=== PATIENT | male | born 1965 | race African-American/Black ===

== ENCOUNTER → 2016-08-12 | Outpatient (CLI) | payer OTHER ==
[~2016-08-12] VITALS: Ht 170.2 cm; Wt 85.8 kg
[~2016-08-12] MED LIST: ALBU8.5H IH; AMLO-512 PO; AMOX500T2 PO; ASPI-1093 PO; ATOR10TA84 PO; BECL8.7A6 IH; CIPR-278 PO; CLOP75TA32 PO; CLOT30CR23 TP; CLOTRIMAZOLE 1% 15 GM CREAM TP ONE; COLL30OI TP; DIAZ5 PO; GABA-533 PO; HYDR-3971 PO; HYDR25TA PO; INSLAN SQ; INSU100V SQ; LIDOCAINE HCL 2% 5 ML JELLY TP ONE; LOSA50TA37 PO; MELO-273 PO; MULT-1259 PO; OMEP10 PO; OXYC1TAB12 PO; SENN8.6T20 PO
[2016-08-12 09:46] VITALS: BP 138/87
== END | disposition home or self-care (01) ==
LOC: HBOWC 07:53
PROVIDERS: ATTEND Emergency Medicine
DX: S61.401D Unspecified open wound of right hand, subsequent encounter (principal); E11.52 Type 2 diabetes mellitus with diabetic peripheral angiopathy with gangrene; E11.69 Type 2 diabetes mellitus with other specified complication; M86.641 Other chronic osteomyelitis, right hand; E11.621 Type 2 diabetes mellitus with foot ulcer; B35.1 Tinea unguium; L84 Corns and callosities; F41.9 Anxiety disorder, unspecified; Z89.022 Acquired absence of left finger(s); Z89.512 Acquired absence of left leg below knee; Z89.021 Acquired absence of right finger(s); X58.XXXD Exposure to other specified factors, subsequent encounter

== ENCOUNTER → 2016-08-18 | Outpatient (CLI) | payer OTHER ==
[~2016-08-18] MED LIST changes: -CIPR-278 PO; -CLOTRIMAZOLE 1% 15 GM CREAM TP ONE; -DIAZ5 PO; -SENN8.6T20 PO
[2016-08-18 08:12] VITALS: BP 125/61
== END | disposition home or self-care (01) ==
LOC: HBOWC 07:43
PROVIDERS: ATTEND Emergency Medicine
DX: E11.621 Type 2 diabetes mellitus with foot ulcer (principal); E11.622 Type 2 diabetes mellitus with other skin ulcer; L97.511 Non-pressure chronic ulcer of other part of right foot limited to breakdown of skin; L98.491 Non-pressure chronic ulcer of skin of other sites limited to breakdown of skin; E11.52 Type 2 diabetes mellitus with diabetic peripheral angiopathy with gangrene; M86.641 Other chronic osteomyelitis, right hand; B35.3 Tinea pedis; M21.41 Flat foot [pes planus] (acquired), right foot; L84 Corns and callosities; B35.1 Tinea unguium; F41.9 Anxiety disorder, unspecified; Z89.512 Acquired absence of left leg below knee; Z89.022 Acquired absence of left finger(s); Z89.021 Acquired absence of right finger(s)
CPT/HCPCS: 93922; 97597; Z7606; Z7608

== ENCOUNTER → 2016-08-19 | Outpatient (CLI) | payer OTHER ==
[~2016-08-19] MED LIST changes: +CIPR-278 PO; +DIAZ5 PO; -LIDOCAINE HCL 2% 5 ML JELLY TP ONE; +SENN8.6T20 PO
== END | disposition home or self-care (01) ==
LOC: HBOWC 07:59
PROVIDERS: ATTEND Emergency Medicine
DX: E11.622 Type 2 diabetes mellitus with other skin ulcer (principal); L98.491 Non-pressure chronic ulcer of skin of other sites limited to breakdown of skin; E11.52 Type 2 diabetes mellitus with diabetic peripheral angiopathy with gangrene; E11.69 Type 2 diabetes mellitus with other specified complication; M86.641 Other chronic osteomyelitis, right hand; L84 Corns and callosities; F41.9 Anxiety disorder, unspecified; B35.3 Tinea pedis; B35.1 Tinea unguium; Z89.022 Acquired absence of left finger(s); Z89.512 Acquired absence of left leg below knee; Z89.021 Acquired absence of right finger(s)
CPT/HCPCS: 93922; Z7606; Z7608

== ENCOUNTER → 2016-08-20 | Outpatient (CLI) | payer OTHER ==
[~2016-08-20] MED LIST changes: -CIPR-278 PO; -DIAZ5 PO; -SENN8.6T20 PO
== END | disposition home or self-care (01) ==
LOC: HBOWC 08:25
PROVIDERS: ATTEND Emergency Medicine
DX: M86.8X4 Other osteomyelitis, hand (principal); E11.52 Type 2 diabetes mellitus with diabetic peripheral angiopathy with gangrene; F41.9 Anxiety disorder, unspecified; M21.41 Flat foot [pes planus] (acquired), right foot; E11.51 Type 2 diabetes mellitus with diabetic peripheral angiopathy without gangrene; Z89.512 Acquired absence of left leg below knee
CPT/HCPCS: Z7606; Z7608

== ENCOUNTER → 2016-08-24 | Outpatient (CLI) | payer OTHER | END | disposition home or self-care (01) | LOC: HBOWC 08:12 | PROVIDERS: ATTEND Emergency Medicine Undersea and Hyperbaric Medicine | DX: M86.8X4 Other osteomyelitis, hand (principal); E11.52 Type 2 diabetes mellitus with diabetic peripheral angiopathy with gangrene; F41.9 Anxiety disorder, unspecified; Z89.022 Acquired absence of left finger(s); Z89.512 Acquired absence of left leg below knee; Z89.021 Acquired absence of right finger(s) | CPT/HCPCS: Z7606; Z7608 ==

== ENCOUNTER → 2016-08-25 | Outpatient (CLI) | payer OTHER ==
[~2016-08-25] MED LIST changes: +CIPR-278 PO; +DIAZ5 PO; +SENN8.6T20 PO
[2016-08-25 12:04] VITALS: BP 145/72
== END | disposition home or self-care (01) ==
LOC: HBOWC 07:50
PROVIDERS: ATTEND Emergency Medicine
DX: E11.621 Type 2 diabetes mellitus with foot ulcer (principal); E11.52 Type 2 diabetes mellitus with diabetic peripheral angiopathy with gangrene; L97.511 Non-pressure chronic ulcer of other part of right foot limited to breakdown of skin; F41.9 Anxiety disorder, unspecified; E11.69 Type 2 diabetes mellitus with other specified complication; M86.8X4 Other osteomyelitis, hand; L84 Corns and callosities; B35.1 Tinea unguium; Z89.022 Acquired absence of left finger(s); Z89.512 Acquired absence of left leg below knee; Z89.021 Acquired absence of right finger(s)
CPT/HCPCS: 97597; Z7606; Z7608

== ENCOUNTER → 2016-08-26 | Outpatient (CLI) | payer OTHER ==
[~2016-08-26] MED LIST changes: -CIPR-278 PO; -DIAZ5 PO; -SENN8.6T20 PO
== END | disposition home or self-care (01) ==
LOC: HBOWC 08:16
PROVIDERS: ATTEND Emergency Medicine
DX: E11.621 Type 2 diabetes mellitus with foot ulcer (principal); L97.521 Non-pressure chronic ulcer of other part of left foot limited to breakdown of skin; E11.52 Type 2 diabetes mellitus with diabetic peripheral angiopathy with gangrene; E11.69 Type 2 diabetes mellitus with other specified complication; M86.641 Other chronic osteomyelitis, right hand; F41.9 Anxiety disorder, unspecified; L84 Corns and callosities; B35.1 Tinea unguium; M21.41 Flat foot [pes planus] (acquired), right foot; B35.3 Tinea pedis; Z89.022 Acquired absence of left finger(s); Z89.512 Acquired absence of left leg below knee
CPT/HCPCS: Z7606; Z7608

== ENCOUNTER → 2016-08-27 | Outpatient (CLI) | payer OTHER | END | disposition home or self-care (01) | LOC: HBOWC 08:02 | PROVIDERS: ATTEND Emergency Medicine | DX: E11.69 Type 2 diabetes mellitus with other specified complication (principal); M86.641 Other chronic osteomyelitis, right hand; E11.52 Type 2 diabetes mellitus with diabetic peripheral angiopathy with gangrene; F41.9 Anxiety disorder, unspecified; Z89.022 Acquired absence of left finger(s); Z89.512 Acquired absence of left leg below knee; Z89.021 Acquired absence of right finger(s) | CPT/HCPCS: Z7606; Z7608 ==

== ENCOUNTER → 2016-08-31 | Outpatient (CLI) | payer OTHER ==
[~2016-08-31] MED LIST changes: +CIPR-278 PO
== END | disposition home or self-care (01) ==
LOC: HBOWC 08:00
PROVIDERS: ATTEND Emergency Medicine
DX: E11.69 Type 2 diabetes mellitus with other specified complication (principal); M86.641 Other chronic osteomyelitis, right hand; E11.52 Type 2 diabetes mellitus with diabetic peripheral angiopathy with gangrene; Z89.022 Acquired absence of left finger(s); Z89.512 Acquired absence of left leg below knee; L84 Corns and callosities; B35.1 Tinea unguium; F41.9 Anxiety disorder, unspecified; M21.41 Flat foot [pes planus] (acquired), right foot
CPT/HCPCS: Z7606; Z7608

== ENCOUNTER → 2016-09-01 | Outpatient (CLI) | payer OTHER ==
[~2016-09-01] MED LIST changes: -CIPR-278 PO
== END | disposition home or self-care (01) ==
LOC: HBOWC 07:57
PROVIDERS: ATTEND Emergency Medicine
DX: E11.621 Type 2 diabetes mellitus with foot ulcer (principal); E11.52 Type 2 diabetes mellitus with diabetic peripheral angiopathy with gangrene; L97.521 Non-pressure chronic ulcer of other part of left foot limited to breakdown of skin; F41.9 Anxiety disorder, unspecified; L84 Corns and callosities; E11.69 Type 2 diabetes mellitus with other specified complication; M86.641 Other chronic osteomyelitis, right hand; B35.3 Tinea pedis; B35.1 Tinea unguium; Z89.022 Acquired absence of left finger(s); Z89.512 Acquired absence of left leg below knee; Z89.021 Acquired absence of right finger(s)
CPT/HCPCS: Z7606; Z7608

== ENCOUNTER 2016-09-02 09:21 | Emergency (ER) | payer OTHER ==
[~2016-09-02] VITALS: Ht 170.2 cm; Wt 84.1 kg
[2016-09-02] MEDS ORDERED: DEXTROSE 10%-WATER 1,000 ML IV ONE (09:45)
[2016-09-02 09:47] LABS: GLUCOSE,POINT OF CARE 75 MG/DL (70-110)
[2016-09-02 09:58] LABS: BASOPHILS % (AUTO) 0.8 % (0.0-2.0); EOSINOPHILS % (AUTO) 5.6 % (1.0-6.0); HEMATOCRIT 35.5 % (41-53); HEMOGLOBIN 11.4 g/dL (13.5-17.5); LYMPHOCYTES # (AUTO) 1.9 K/uL (1.0-4.8); LYMPHOCYTES % (AUTO) 25.6 % (22.0-44.0); MEAN CORPUSCULAR HEMOGLOBIN 27.7 pg (26.0-34.0); MEAN CORPUSCULAR VOLUME 86 fL (80-100); MONOCYTES # (AUTO) 0.6 K/uL (0.1-1.0); MONOCYTES % (AUTO) 7.7 % (2.0-9.0); NEUTROPHILS # (AUTO) 4.5 K/uL (1.8-7.7); NEUTROPHILS % (AUTO) 60.3 % (40.0-70.0); PLATELET COUNT (AUTO) 337 K/uL (150-450); RED BLOOD CELL COUNT(AUTO) 4.11 MIL/uL (4.50-5.90); RED CELL DISTRIBUTION WIDTH 14.5 % (11.5-14.5); WHITE BLOOD COUNT (AUTO) 7.4 K/uL (4.5-11.0)
[2016-09-02 10:09] LABS: CREATININE 1.63 mg/dL (0.60-1.30); POTASSIUM 3.7 mmol/L (3.5-5.1)
[2016-09-02 10:15] LABS: ALBUMIN 3.8 g/dL (3.4-5.0); BILIRUBIN,TOTAL 0.2 mg/dL (0.1-1.0)
[2016-09-02] MEDS ORDERED: OxyCODONE HCL/ACETAMINOPHEN 10-325 MG TABLET PO ONE (10:15)
[2016-09-02 11:32] LABS: GLUCOSE,POINT OF CARE 171 MG/DL (70-110)
[2016-09-02 12:55] VITALS: BP 128/78
[2016-09-24] MEDS ORDERED: CIPR-278 PO (09:16)
== END 2016-09-02 14:13 | disposition home or self-care (01) ==
LOC: EMS 09:22
DX: T38.3X1A Poisoning by insulin and oral hypoglycemic [antidiabetic] drugs, accidental (unintentional), initial encounter (principal); E11.649 Type 2 diabetes mellitus with hypoglycemia without coma; F17.210 Nicotine dependence, cigarettes, uncomplicated; F12.90 Cannabis use, unspecified, uncomplicated; Z79.82 Long term (current) use of aspirin; Z79.4 Long term (current) use of insulin; Z88.1 Allergy status to other antibiotic agents; Z88.5 Allergy status to narcotic agent; Z88.2 Allergy status to sulfonamides
CPT/HCPCS: 36415; 80053; 82962; 85025; 96360; 96361; 99284; X7700

== ENCOUNTER → 2016-09-02 | Outpatient (CLI) | payer OTHER ==
[2016-09-02 09:02] LABS: GLUCOSE,POINT OF CARE 87 MG/DL (70-110)
[2016-09-02 09:47] VITALS: BP 109/52
== END | disposition home or self-care (01) ==
LOC: HBOWC 08:16
PROVIDERS: ATTEND Emergency Medicine
DX: E11.621 Type 2 diabetes mellitus with foot ulcer (principal); E11.52 Type 2 diabetes mellitus with diabetic peripheral angiopathy with gangrene; E11.69 Type 2 diabetes mellitus with other specified complication; M86.641 Other chronic osteomyelitis, right hand; L97.511 Non-pressure chronic ulcer of other part of right foot limited to breakdown of skin; B35.3 Tinea pedis; L84 Corns and callosities; B35.1 Tinea unguium; F41.9 Anxiety disorder, unspecified; M21.41 Flat foot [pes planus] (acquired), right foot; Z89.022 Acquired absence of left finger(s); Z89.512 Acquired absence of left leg below knee; Z89.021 Acquired absence of right finger(s)
CPT/HCPCS: 82962; G0463

== ENCOUNTER → 2016-09-03 | Outpatient (CLI) | payer OTHER ==
[~2016-09-03] MED LIST changes: +CIPR-278 PO
[2016-09-03 08:27] LABS: GLUCOSE,POINT OF CARE 285 MG/DL (70-110)
== END | disposition home or self-care (01) ==
LOC: HBOWC 08:00
PROVIDERS: ATTEND Emergency Medicine
DX: E11.52 Type 2 diabetes mellitus with diabetic peripheral angiopathy with gangrene (principal); E11.69 Type 2 diabetes mellitus with other specified complication; M86.641 Other chronic osteomyelitis, right hand; F41.9 Anxiety disorder, unspecified; Z89.512 Acquired absence of left leg below knee; Z89.022 Acquired absence of left finger(s); Z89.021 Acquired absence of right finger(s); M21.41 Flat foot [pes planus] (acquired), right foot
CPT/HCPCS: 82962; Z7606; Z7608

== ENCOUNTER → 2016-09-07 | Outpatient (CLI) | payer OTHER ==
[~2016-09-07] MED LIST changes: -CIPR-278 PO
== END | disposition home or self-care (01) ==
LOC: HBOWC 08:02
PROVIDERS: ATTEND Emergency Medicine
DX: E11.621 Type 2 diabetes mellitus with foot ulcer (principal); E11.52 Type 2 diabetes mellitus with diabetic peripheral angiopathy with gangrene; L97.511 Non-pressure chronic ulcer of other part of right foot limited to breakdown of skin; F41.9 Anxiety disorder, unspecified; E11.69 Type 2 diabetes mellitus with other specified complication; M86.8X4 Other osteomyelitis, hand; L84 Corns and callosities; B35.1 Tinea unguium; Z89.022 Acquired absence of left finger(s); Z89.512 Acquired absence of left leg below knee; Z89.021 Acquired absence of right finger(s)
CPT/HCPCS: Z7606; Z7608

== ENCOUNTER → 2016-09-08 | Outpatient (CLI) | payer OTHER | END | disposition home or self-care (01) | LOC: HBOWC 08:23 | PROVIDERS: ATTEND Emergency Medicine | DX: E11.622 Type 2 diabetes mellitus with other skin ulcer (principal); L98.491 Non-pressure chronic ulcer of skin of other sites limited to breakdown of skin; E11.649 Type 2 diabetes mellitus with hypoglycemia without coma; E11.69 Type 2 diabetes mellitus with other specified complication; M86.8X4 Other osteomyelitis, hand; E11.52 Type 2 diabetes mellitus with diabetic peripheral angiopathy with gangrene; F12.90 Cannabis use, unspecified, uncomplicated; L84 Corns and callosities; Z79.4 Long term (current) use of insulin; B35.3 Tinea pedis; B35.1 Tinea unguium; Z89.512 Acquired absence of left leg below knee; Z89.022 Acquired absence of left finger(s); Z89.021 Acquired absence of right finger(s) | CPT/HCPCS: Z7606; Z7608 ==

== ENCOUNTER → 2016-09-09 | Outpatient (CLI) | payer OTHER | END | disposition home or self-care (01) | LOC: HBOWC 08:25 | PROVIDERS: ATTEND Emergency Medicine | DX: M86.8X4 Other osteomyelitis, hand (principal); E11.52 Type 2 diabetes mellitus with diabetic peripheral angiopathy with gangrene; E11.649 Type 2 diabetes mellitus with hypoglycemia without coma; F41.9 Anxiety disorder, unspecified; L84 Corns and callosities; B35.3 Tinea pedis; B35.1 Tinea unguium; F17.210 Nicotine dependence, cigarettes, uncomplicated; Z79.4 Long term (current) use of insulin; Z89.022 Acquired absence of left finger(s); Z89.512 Acquired absence of left leg below knee; Z89.021 Acquired absence of right finger(s) | CPT/HCPCS: Z7606; Z7608 ==

== ENCOUNTER → 2016-09-10 | Outpatient (CLI) | payer OTHER ==
[2016-09-10 12:08] VITALS: BP 152/90
== END | disposition home or self-care (01) ==
LOC: HBOWC 08:21
PROVIDERS: ATTEND Emergency Medicine
DX: E11.622 Type 2 diabetes mellitus with other skin ulcer (principal); L98.494 Non-pressure chronic ulcer of skin of other sites with necrosis of bone; E11.52 Type 2 diabetes mellitus with diabetic peripheral angiopathy with gangrene; E11.621 Type 2 diabetes mellitus with foot ulcer; L97.511 Non-pressure chronic ulcer of other part of right foot limited to breakdown of skin; E11.69 Type 2 diabetes mellitus with other specified complication; M86.641 Other chronic osteomyelitis, right hand; F12.90 Cannabis use, unspecified, uncomplicated; L84 Corns and callosities; Z79.4 Long term (current) use of insulin; B35.1 Tinea unguium; B35.3 Tinea pedis; E11.649 Type 2 diabetes mellitus with hypoglycemia without coma; F41.9 Anxiety disorder, unspecified; M21.41 Flat foot [pes planus] (acquired), right foot; F17.210 Nicotine dependence, cigarettes, uncomplicated; Z89.022 Acquired absence of left finger(s); Z89.021 Acquired absence of right finger(s); Z89.512 Acquired absence of left leg below knee
CPT/HCPCS: 97597; Z7606; Z7608

== ENCOUNTER → 2016-09-13 | Outpatient (CLI) | payer OTHER ==
[2016-09-13 08:37] LABS: GLUCOSE,POINT OF CARE 110 MG/DL (70-110)
[2016-09-13 11:52] LABS: GLUCOSE,POINT OF CARE 181 MG/DL (70-110)
== END | disposition home or self-care (01) ==
LOC: HBOWC 07:54
PROVIDERS: ATTEND Emergency Medicine Undersea and Hyperbaric Medicine
DX: E11.69 Type 2 diabetes mellitus with other specified complication (principal); M86.641 Other chronic osteomyelitis, right hand; F41.9 Anxiety disorder, unspecified; E11.52 Type 2 diabetes mellitus with diabetic peripheral angiopathy with gangrene; F17.210 Nicotine dependence, cigarettes, uncomplicated; F12.90 Cannabis use, unspecified, uncomplicated; Z79.4 Long term (current) use of insulin; Z89.022 Acquired absence of left finger(s); Z89.021 Acquired absence of right finger(s); Z89.512 Acquired absence of left leg below knee
CPT/HCPCS: 82962; Z7606; Z7608

== ENCOUNTER → 2016-09-14 | Outpatient (CLI) | payer OTHER | END | disposition home or self-care (01) | LOC: HBOWC 08:05 | PROVIDERS: ATTEND Emergency Medicine Undersea and Hyperbaric Medicine | DX: E11.69 Type 2 diabetes mellitus with other specified complication (principal); M86.8X4 Other osteomyelitis, hand; E11.52 Type 2 diabetes mellitus with diabetic peripheral angiopathy with gangrene; F41.9 Anxiety disorder, unspecified; L84 Corns and callosities; B35.3 Tinea pedis; B35.1 Tinea unguium; F17.210 Nicotine dependence, cigarettes, uncomplicated; Z79.4 Long term (current) use of insulin; Z89.022 Acquired absence of left finger(s); Z89.512 Acquired absence of left leg below knee; Z89.021 Acquired absence of right finger(s) | CPT/HCPCS: Z7606; Z7608 ==

== ENCOUNTER → 2016-09-15 | Outpatient (CLI) | payer OTHER ==
[2016-09-15 08:31] LABS: GLUCOSE,POINT OF CARE 245 MG/DL (70-110)
[2016-09-15 12:14] VITALS: BP 148/90
== END | disposition home or self-care (01) ==
LOC: HBOWC 08:04
PROVIDERS: ATTEND Emergency Medicine Undersea and Hyperbaric Medicine
DX: L97.511 Non-pressure chronic ulcer of other part of right foot limited to breakdown of skin (principal); E11.621 Type 2 diabetes mellitus with foot ulcer; S61.402D Unspecified open wound of left hand, subsequent encounter; E11.52 Type 2 diabetes mellitus with diabetic peripheral angiopathy with gangrene; E11.69 Type 2 diabetes mellitus with other specified complication; M86.8X4 Other osteomyelitis, hand; F41.9 Anxiety disorder, unspecified; L84 Corns and callosities; B35.1 Tinea unguium; B35.3 Tinea pedis; Z79.4 Long term (current) use of insulin; Z89.021 Acquired absence of right finger(s); Z89.022 Acquired absence of left finger(s); Z89.512 Acquired absence of left leg below knee; X58.XXXD Exposure to other specified factors, subsequent encounter
CPT/HCPCS: 82962; 97597; Z7606; Z7608

== ENCOUNTER → 2016-09-16 | Outpatient (CLI) | payer OTHER ==
[2016-09-16 11:10] LABS: GLUCOSE COMMENT 1 Received Meds; GLUCOSE,POINT OF CARE 283 MG/DL (70-110)
== END | disposition home or self-care (01) ==
LOC: HBOWC 08:07
PROVIDERS: ATTEND Emergency Medicine Undersea and Hyperbaric Medicine
DX: E11.69 Type 2 diabetes mellitus with other specified complication (principal); M86.8X4 Other osteomyelitis, hand; F41.9 Anxiety disorder, unspecified; F12.90 Cannabis use, unspecified, uncomplicated; F17.210 Nicotine dependence, cigarettes, uncomplicated; Z89.512 Acquired absence of left leg below knee; Z89.021 Acquired absence of right finger(s); Z89.022 Acquired absence of left finger(s); Z79.4 Long term (current) use of insulin
CPT/HCPCS: 82962; Z7606; Z7608

== ENCOUNTER → 2016-09-20 | Outpatient (CLI) | payer OTHER ==
[~2016-09-20] MED LIST changes: +CIPR-278 PO
[2016-09-20 08:10] VITALS: BP 150/69
== END | disposition home or self-care (01) ==
LOC: HBOWC 08:05
PROVIDERS: ATTEND Emergency Medicine
DX: E11.621 Type 2 diabetes mellitus with foot ulcer (principal); L97.511 Non-pressure chronic ulcer of other part of right foot limited to breakdown of skin; E11.52 Type 2 diabetes mellitus with diabetic peripheral angiopathy with gangrene; E11.69 Type 2 diabetes mellitus with other specified complication; M86.641 Other chronic osteomyelitis, right hand; S61.402D Unspecified open wound of left hand, subsequent encounter; F41.9 Anxiety disorder, unspecified; F12.90 Cannabis use, unspecified, uncomplicated; B35.1 Tinea unguium; L84 Corns and callosities; F17.210 Nicotine dependence, cigarettes, uncomplicated; Z89.022 Acquired absence of left finger(s); Z89.512 Acquired absence of left leg below knee; Z89.021 Acquired absence of right finger(s); Z79.82 Long term (current) use of aspirin; Z79.4 Long term (current) use of insulin; X58.XXXD Exposure to other specified factors, subsequent encounter
CPT/HCPCS: 97597

== ENCOUNTER → 2016-09-21 | Outpatient (CLI) | payer OTHER | END | disposition home or self-care (01) | LOC: HBOWC 08:26 | PROVIDERS: ATTEND Emergency Medicine | DX: E11.69 Type 2 diabetes mellitus with other specified complication (principal); M86.641 Other chronic osteomyelitis, right hand; F12.90 Cannabis use, unspecified, uncomplicated; E11.52 Type 2 diabetes mellitus with diabetic peripheral angiopathy with gangrene; F41.9 Anxiety disorder, unspecified; Z88.1 Allergy status to other antibiotic agents; Z88.5 Allergy status to narcotic agent; Z88.2 Allergy status to sulfonamides; F17.210 Nicotine dependence, cigarettes, uncomplicated; Z79.4 Long term (current) use of insulin; Z89.022 Acquired absence of left finger(s); Z89.421 Acquired absence of other right toe(s); Z89.512 Acquired absence of left leg below knee; Z89.021 Acquired absence of right finger(s) | CPT/HCPCS: Z7606; Z7608 ==

== ENCOUNTER → 2016-09-22 | Outpatient (CLI) | payer OTHER ==
[2016-09-22 11:41] VITALS: BP 104/65
== END | disposition home or self-care (01) ==
LOC: HBOWC 08:10
PROVIDERS: ATTEND Emergency Medicine
DX: E11.622 Type 2 diabetes mellitus with other skin ulcer (principal); E11.52 Type 2 diabetes mellitus with diabetic peripheral angiopathy with gangrene; L98.491 Non-pressure chronic ulcer of skin of other sites limited to breakdown of skin; E11.621 Type 2 diabetes mellitus with foot ulcer; L97.511 Non-pressure chronic ulcer of other part of right foot limited to breakdown of skin; E11.69 Type 2 diabetes mellitus with other specified complication; E11.65 Type 2 diabetes mellitus with hyperglycemia; M86.641 Other chronic osteomyelitis, right hand; L84 Corns and callosities; B35.3 Tinea pedis; F41.9 Anxiety disorder, unspecified; Z79.4 Long term (current) use of insulin; Z89.022 Acquired absence of left finger(s); Z89.512 Acquired absence of left leg below knee; Z89.021 Acquired absence of right finger(s)
CPT/HCPCS: 97597; Z7606; Z7608

== ENCOUNTER → 2016-09-23 | Outpatient (CLI) | payer OTHER | END | disposition home or self-care (01) | LOC: HBOWC 08:07 | PROVIDERS: ATTEND Emergency Medicine | DX: E11.69 Type 2 diabetes mellitus with other specified complication (principal); M86.641 Other chronic osteomyelitis, right hand; E11.52 Type 2 diabetes mellitus with diabetic peripheral angiopathy with gangrene; F41.9 Anxiety disorder, unspecified; F12.90 Cannabis use, unspecified, uncomplicated; F17.210 Nicotine dependence, cigarettes, uncomplicated; Z89.022 Acquired absence of left finger(s); Z89.021 Acquired absence of right finger(s); Z89.512 Acquired absence of left leg below knee; Z89.421 Acquired absence of other right toe(s); Z88.5 Allergy status to narcotic agent; Z88.1 Allergy status to other antibiotic agents; Z88.2 Allergy status to sulfonamides; Z79.4 Long term (current) use of insulin | CPT/HCPCS: Z7606; Z7608 ==

== ENCOUNTER → 2016-09-24 | Outpatient (CLI) | payer OTHER ==
[2016-09-24 11:32] LABS: GLUCOSE COMMENT 1 Juice/Food/D50 Given; GLUCOSE,POINT OF CARE 115 MG/DL (70-110)
== END | disposition home or self-care (01) ==
LOC: HBOWC 08:19
PROVIDERS: ATTEND Emergency Medicine
DX: E11.622 Type 2 diabetes mellitus with other skin ulcer (principal); E11.52 Type 2 diabetes mellitus with diabetic peripheral angiopathy with gangrene; L98.491 Non-pressure chronic ulcer of skin of other sites limited to breakdown of skin; E11.65 Type 2 diabetes mellitus with hyperglycemia; E11.69 Type 2 diabetes mellitus with other specified complication; M86.641 Other chronic osteomyelitis, right hand; L84 Corns and callosities; B35.3 Tinea pedis; B35.1 Tinea unguium; F17.210 Nicotine dependence, cigarettes, uncomplicated; Z79.4 Long term (current) use of insulin; Z89.022 Acquired absence of left finger(s); Z89.021 Acquired absence of right finger(s); Z89.512 Acquired absence of left leg below knee
CPT/HCPCS: 82962; Z7606; Z7608

== ENCOUNTER → 2016-09-27 | Outpatient (CLI) | payer OTHER ==
[~2016-09-27] MED LIST changes: +BP MED; +DIAZ5 PO; +INSU100C4 SQ; +INSU100C6 SQ; +SENN8.6T20 PO
== END | disposition home or self-care (01) ==
LOC: HBOWC 08:28
PROVIDERS: ATTEND Emergency Medicine
DX: M86.8X4 Other osteomyelitis, hand (principal); E11.52 Type 2 diabetes mellitus with diabetic peripheral angiopathy with gangrene; E11.65 Type 2 diabetes mellitus with hyperglycemia; L84 Corns and callosities; B35.1 Tinea unguium; F41.9 Anxiety disorder, unspecified; F17.210 Nicotine dependence, cigarettes, uncomplicated; Z89.022 Acquired absence of left finger(s); Z89.421 Acquired absence of other right toe(s); Z89.512 Acquired absence of left leg below knee; Z79.4 Long term (current) use of insulin; Z89.021 Acquired absence of right finger(s)
CPT/HCPCS: Z7606; Z7608

== ENCOUNTER → 2016-09-29 | Outpatient (CLI) | payer OTHER ==
[~2016-09-29] MED LIST changes: -AMOX500T2 PO; -BP MED; -DIAZ5 PO; -INSU100C4 SQ; -INSU100C6 SQ; -SENN8.6T20 PO
[2016-09-29 12:26] VITALS: BP 155/82
== END | disposition home or self-care (01) ==
LOC: HBOWC 08:49
PROVIDERS: ATTEND Emergency Medicine
DX: T87.89 Other complications of amputation stump (principal); E11.621 Type 2 diabetes mellitus with foot ulcer; L97.511 Non-pressure chronic ulcer of other part of right foot limited to breakdown of skin; E11.52 Type 2 diabetes mellitus with diabetic peripheral angiopathy with gangrene; L84 Corns and callosities; E11.69 Type 2 diabetes mellitus with other specified complication; M86.641 Other chronic osteomyelitis, right hand; F41.9 Anxiety disorder, unspecified; F12.90 Cannabis use, unspecified, uncomplicated; B35.1 Tinea unguium; Z88.1 Allergy status to other antibiotic agents; Z88.5 Allergy status to narcotic agent; Z88.2 Allergy status to sulfonamides; Z89.512 Acquired absence of left leg below knee; Z89.421 Acquired absence of other right toe(s); Z89.022 Acquired absence of left finger(s); Z79.4 Long term (current) use of insulin; F17.210 Nicotine dependence, cigarettes, uncomplicated; Y83.5 Amputation of limb(s) as the cause of abnormal reaction of the patient, or of later complication, without mention of misadventure at the time of the procedure
CPT/HCPCS: 97597; Z7606; Z7608

== ENCOUNTER → 2016-10-01 | Outpatient (CLI) | payer OTHER | END | disposition home or self-care (01) | LOC: HBOWC 08:28 | PROVIDERS: ATTEND Emergency Medicine | DX: E11.69 Type 2 diabetes mellitus with other specified complication (principal); M86.8X4 Other osteomyelitis, hand; E11.52 Type 2 diabetes mellitus with diabetic peripheral angiopathy with gangrene; E11.65 Type 2 diabetes mellitus with hyperglycemia; B35.1 Tinea unguium; L84 Corns and callosities; F41.9 Anxiety disorder, unspecified; F17.210 Nicotine dependence, cigarettes, uncomplicated; Z89.022 Acquired absence of left finger(s); Z89.512 Acquired absence of left leg below knee; Z89.421 Acquired absence of other right toe(s); Z79.4 Long term (current) use of insulin | CPT/HCPCS: Z7606; Z7608 ==

== ENCOUNTER → 2016-10-04 | Outpatient (CLI) | payer OTHER | END | disposition home or self-care (01) | LOC: HBOWC 08:09 | PROVIDERS: ATTEND Emergency Medicine | DX: E11.622 Type 2 diabetes mellitus with other skin ulcer (principal); L98.491 Non-pressure chronic ulcer of skin of other sites limited to breakdown of skin; E11.69 Type 2 diabetes mellitus with other specified complication; M86.641 Other chronic osteomyelitis, right hand; E11.52 Type 2 diabetes mellitus with diabetic peripheral angiopathy with gangrene; B35.1 Tinea unguium; L84 Corns and callosities; F17.210 Nicotine dependence, cigarettes, uncomplicated; E11.65 Type 2 diabetes mellitus with hyperglycemia; B35.3 Tinea pedis; M21.41 Flat foot [pes planus] (acquired), right foot; F41.9 Anxiety disorder, unspecified; E11.649 Type 2 diabetes mellitus with hypoglycemia without coma; Z79.4 Long term (current) use of insulin; Z89.021 Acquired absence of right finger(s); Z89.022 Acquired absence of left finger(s); Z89.512 Acquired absence of left leg below knee; Z89.421 Acquired absence of other right toe(s) | CPT/HCPCS: Z7606; Z7608 ==

== ENCOUNTER 2017-05-30 04:50 | Emergency (ER) | payer OTHER ==
[~2017-05-30] VITALS: Ht 170.2 cm; Wt 84.1 kg
[~2017-05-30 04:50] MED LIST changes: -ALBU8.5H IH; +ALBU8.5H8 IH; -ASPI-1093 PO; +ASPI-1182 PO; -HYDR-3971 PO; +HYDR-4069 PO; +MELO-107 PO; -MELO-273 PO
[2017-05-30 05:43] LABS: GLUCOSE,POINT OF CARE 44 MG/DL (70-110)
[2017-05-30 05:43] LABS: GLUCOSE,POINT OF CARE 81 MG/DL (70-110)
[2017-05-30 08:06] LABS: BASOPHILS % (AUTO) 0.3 % (0.0-2.0); EOSINOPHILS % (AUTO) 0.2 % (1.0-6.0); HEMATOCRIT 31.7 % (41-53); HEMOGLOBIN 10.2 g/dL (13.5-17.5); LYMPHOCYTES # (AUTO) 3.1 K/uL (1.0-4.8); MEAN CORPUSCULAR HEMOGLOBIN 27.6 pg (26.0-34.0); MEAN CORPUSCULAR HGB CONC 32.2 G/dL (31.0-37.0); MEAN CORPUSCULAR VOLUME 86 fL (80-100); MONOCYTES # (AUTO) 1.2 K/uL (0.1-1.0); MONOCYTES % (AUTO) 7.3 % (2.0-9.0); NEUTROPHILS # (AUTO) 11.8 K/uL (1.8-7.7); NEUTROPHILS % (AUTO) 73.2 % (40.0-70.0); PLATELET COUNT (AUTO) 386 K/uL (150-450); RED BLOOD CELL COUNT(AUTO) 3.71 MIL/uL (4.50-5.90)
[2017-05-30 08:14] LABS: CALCIUM, TOTAL 8.6 mg/dL (8.8-10.5); CREATININE 1.52 mg/dL (0.60-1.30); POTASSIUM 3.9 mmol/L (3.5-5.1)
[2017-05-30 08:16] LABS: PROTHROMBIN TIME 10.8 SEC (9.4-11.6)
[2017-05-30 08:20] LABS: ALBUMIN 3.6 g/dL (3.4-5.0); BILIRUBIN,TOTAL 0.4 mg/dL (0.1-1.0)
[2017-05-30] MEDS ORDERED: DEXTROSE 5%-0.45% SODIUM CHL 1,000 ML IV ONE (08:45)
[2017-05-30 10:03] LABS: GLUCOSE,POINT OF CARE 108 MG/DL (70-110)
[2017-05-30 12:24] LABS: APPEARANCE,URINE CLEAR (CLEAR); BILIRUBIN,URINE NEGATIVE (NEGATIVE); GLUCOSE, URINE (UA) NEGATIVE (NEGATIVE); KETONES,URINE NEGATIVE (NEGATIVE); LEUKOCYTE ESTERASE ,URINE NEGATIVE (NEGATIVE); NITRATE,URINE NEGATIVE (NEGATIVE); OCCULT BLOOD,URINE NEGATIVE (NEGATIVE); PROTEIN,URINE NEGATIVE (NEGATIVE); UROBILINOGEN,URINE 0.2 mg/dL (<=1.0)
[2017-05-30 12:33] LABS: AMPHET/METH SCREEN,URINE POSITIVE (NEGATIVE); BARBITURATE SCREEN, URINE NEGATIVE (NEGATIVE); BENZODIAZEPINES SCREEN,URINE NEGATIVE (NEGATIVE); CANNABINOID SCREEN,URINE NEGATIVE (NEGATIVE); COCAINE SCREEN,URINE POSITIVE (NEGATIVE); METHADONE SCREEN, URINE NEGATIVE (NEGATIVE); OPIATE SCREEN,URINE NEGATIVE (NEGATIVE)
[2017-05-30 12:34] LABS: PHENCYCLIDINE SCREEN,URINE NEGATIVE (NEGATIVE)
[2017-05-30 13:00] VITALS: BP 132/81
== END 2017-05-30 13:50 | disposition home or self-care (01) ==
LOC: EMS 04:51
DX: K85.90 Acute pancreatitis without necrosis or infection, unspecified (principal); E11.649 Type 2 diabetes mellitus with hypoglycemia without coma; E11.22 Type 2 diabetes mellitus with diabetic chronic kidney disease; N18.9 Chronic kidney disease, unspecified; F17.210 Nicotine dependence, cigarettes, uncomplicated; F14.10 Cocaine abuse, uncomplicated; Z88.6 Allergy status to analgesic agent; Z88.1 Allergy status to other antibiotic agents; Z79.4 Long term (current) use of insulin; Z79.899 Other long term (current) drug therapy; Z79.82 Long term (current) use of aspirin
CPT/HCPCS: 36415; 71045; 74176; 80053; 80307; 81003; 82962; 83690; 84484; 85025; 85610; 85730; 93005; 96360; 96361; 99285; X7700

== ENCOUNTER 2022-06-02 12:29 | Emergency (ER) | payer OTHER ==
[~2022-06-02] VITALS: Ht 160 cm; Wt 75.0 kg
[~2022-06-02 12:29] MED LIST changes: +AMLO-258 PO; -AMLO-512 PO; -ASPI-1182 PO; +ASPI-1444 PO; +ATOR10TA PO; -ATOR10TA84 PO; +GABA-1201 PO; -GABA-533 PO; -HYDR25TA PO; +HYDR25TA2 PO; +LOSA-382 PO; -LOSA50TA37 PO; -MELO-107 PO; +MELO-381 PO
[2022-06-02] MEDS ORDERED: SODIUM CHLORIDE 0.9% 500 ML IV ONE (13:00)
[2022-06-02 13:17] LABS: BASOPHILS % (AUTO) 0.6 % (0.0-2.0); EOSINOPHILS % (AUTO) 0.6 % (1.0-6.0); HEMATOCRIT 37.6 % (41-53); HEMOGLOBIN 12.4 g/dL (13.5-17.5); LYMPHOCYTES # (AUTO) 1.9 K/uL (1.0-4.8); LYMPHOCYTES % (AUTO) 22.3 % (22.0-44.0); MEAN CORPUSCULAR HEMOGLOBIN 29.3 pg (26.0-34.0); MEAN CORPUSCULAR VOLUME 89 fL (80-100); MONOCYTES # (AUTO) 0.5 K/uL (0.1-1.0); MONOCYTES % (AUTO) 5.8 % (2.0-9.0); NEUTROPHILS % (AUTO) 70.7 % (40.0-70.0); PLATELET COUNT (AUTO) 392 K/uL (150-450); RED BLOOD CELL COUNT(AUTO) 4.23 MIL/uL (4.50-5.90); RED CELL DISTRIBUTION WIDTH 14.6 % (11.5-14.5)
[2022-06-02 13:26] LABS: ANION GAP 8 mmol/L (8-16); CARBON DIOXIDE 29 mmol/L (22-29); CHLORIDE 96 mmol/L (98-107); CREATININE 1.36 mg/dL (0.60-1.30); GLOMERULAR FILTR. RATE CALC > 60 mL/min (>60); GLUCOSE,RANDOM 303 mg/dL (70-110); SODIUM SERUM 133 mmol/L (136-145); UREA NITROGEN, BLOOD 21 mg/dL (7-18)
[2022-06-02 13:27] LABS: CALCIUM, TOTAL 9.4 mg/dL (8.8-10.5)
[2022-06-02 13:32] LABS: PROTHROMBIN TIME 11.1 SEC (9.4-11.6)
[2022-06-02 13:41] LABS: ALANINE AMINOTRANSFERASE 30 U/L (12-78); ALKALINE PHOSPHATASE 128 U/L (46-116); ASPARTATE AMINOTRANSFERASE 23 U/L (15-37); BILIRUBIN,TOTAL 0.3 mg/dL (0.1-1.0); TOTAL PROTEIN, SERUM 8.4 g/dL (6.4-8.2)
[2022-06-02 13:41] LABS: COVID AG,FIA SOURCE NASAL SWAB
[2022-06-02 13:58] LABS: B-TYPE NATRIURETIC PEPTIDE 1110 pg/mL (0-100)
[2022-06-02 14:38] LABS: INFLUENZA TYPE A NEGATIVE FOR TYPE A (NEGATIVE); INFLUENZA TYPE B NEGATIVE FOR TYPE B (NEGATIVE)
[2022-06-02] MEDS ORDERED: ACETAMINOPHEN 500 MG TABLET PO ONE (15:30)
[2022-06-02 16:20] VITALS: BP 115/69
== END 2022-06-02 16:36 | disposition home or self-care (01) ==
LOC: EMS 12:42
DX: R06.02 Shortness of breath (principal); R07.9 Chest pain, unspecified; E86.0 Dehydration; E11.65 Type 2 diabetes mellitus with hyperglycemia; K75.9 Inflammatory liver disease, unspecified; F17.210 Nicotine dependence, cigarettes, uncomplicated; F12.90 Cannabis use, unspecified, uncomplicated; F14.90 Cocaine use, unspecified, uncomplicated; Z88.2 Allergy status to sulfonamides; Z88.5 Allergy status to narcotic agent; Z88.8 Allergy status to other drugs, medicaments and biological substances; Z79.899 Other long term (current) drug therapy; Z20.822 Contact with and (suspected) exposure to COVID-19
CPT/HCPCS: 71045; 80053; 83880; 84484; 85025; 85610; 85730; 87804; 93005; 96360; 99285; 36415-L1; 36415-TC